=== PATIENT | female | born 1975 | race African-American/Black ===

== ENCOUNTER 2018-05-21 19:53 | Emergency (ER) | payer OTHER, SELFPAY ==
[2018-05-21] MEDS ORDERED: Ondansetron ODT 8 MG TAB ONE (20:15)
[2018-05-21 20:24] LABS: Pregnancy Test - Urine (BHCG) Negative (Negative)
[2018-05-21 20:25] LABS: Bilirubin Negative (Negative); Blood, Urine Moderate (Negative); Clarity Cloudy (Clear); Glucose, Urine (Dipstick) Negative (Negative); Leukocyte Trace (Negative); Nitrite Negative (Negative); Pregu Control Background? CLEAR/WHITE (CLR/WHITE); Pregu Control Bar Appear? YES (CONTROL BAR); Protein, Urine (Dipstick) Negative (Neg-Trace)
[2018-05-21 20:27] LABS: Bacteria/HPF 2+ HPF (None Seen)
--- NOTE | 2018-05-21 21:03 | RAD ---
CHEST TWO VIEWS: INDICATIONS: Productive cough and shortness of breath. COMPARISON: 08/08/2016 FINDINGS: There are patchy areas of air space opacity seen within the region of the right middle lobe and right lower lobe, suspicious for pneumonia. There are also patchy opacities within the right upper lobe. The left lung is clear. Heart size is at the upper limits of normal for size. No acute os abnormal ity is evident. IMPRESSION: Patchy opacities within the right lung, suspicious for pneumonia. Recommend radiographic followup to resolution. POS: [facility]
== END 2018-05-21 21:14 | disposition home or self-care (01) ==
LOC: SCSER 19:53
DX: J18.9 Pneumonia, unspecified organism (principal); E03.9 Hypothyroidism, unspecified; Z79.899 Other long term (current) drug therapy
CPT/HCPCS: 71046; 81003; 81015; 81025

== ENCOUNTER 2018-11-08 20:48 | Emergency (ER) | payer BC, SELFPAY ==
--- NOTE | 2018-11-08 22:02 | RAD ---
Radiograph chest 2 views: 11/08/2018 at 9:46 PM HISTORY: 43-year-old female with productive cough, chest congestion, and dyspnea COMPARISON: 05/21/2018 FINDINGS: Again demonstrated is the patchy focal opacity at right medial lower lung zone on the frontal view, w hich probably corresponds to a combination of right middle lobe and right lower lobe densities on the lateral view. No cardiomegaly or pleural effusion. A more faint, more suitable patchy infiltrate in right upper lobe. Nonspecific mild streaky densities in the left lower lobe. No pneumothorax. No interval change overall. IMPRESSION: Bilateral mostly small infiltrates appear similar to those of 05/21/2018.
== END 2018-11-08 22:10 | disposition home or self-care (01) ==
LOC: SCSER 20:48
DX: J20.9 Acute bronchitis, unspecified (principal); E03.9 Hypothyroidism, unspecified; Z79.899 Other long term (current) drug therapy
CPT/HCPCS: 71046; 94640; J7620

== ENCOUNTER 2024-01-02 03:38 | Emergency (ER) | payer MEDICAID, MEDICARE | END 2024-01-02 06:47 | disposition home or self-care (01) | LOC: ERS 03:38 | DX: S51.012A Laceration without foreign body of left elbow, initial encounter (principal); S91.312A Laceration without foreign body, left foot, initial encounter; Y04.0XXA Assault by unarmed brawl or fight, initial encounter | CPT/HCPCS: 71045; 93005 ==